=== PATIENT | female | born 1945 | race Caucasian/White ===

== ENCOUNTER 2019-05-18 22:08 | Emergency (ER) | payer MEDICARE, MEDICAID ==
[~2019-05-18] VITALS: Ht 157.5 cm; Wt 113.0 kg
[~2019-05-18 22:08] MED LIST: ATOR40TA PO; ATRIN IH; CEPH-572 PO; CITA40TA22 PO; FURO40TA4 PO; HYDR-4383 PO; OMEP40CA13 PO; WARF2.5T82 PO
[2019-05-18 23:14] LABS: BASOPHILS # (AUTO) 0.1 X10'3 (0-0.2); EOSINOPHILS # (AUTO) 0.4 X10'3 (0-0.9); EOSINOPHILS % (AUTO) 2.9 % (0-6); HEMATOCRIT 37.2 % (35.0-45.0); HEMOGLOBIN 12.1 g/dl (12.0-16.0); LYMPHOCYTES # (AUTO) 3.3 X10'3 (1.1-4.8); LYMPHOCYTES % (AUTO) 24.4 % (21-51); MEAN CORPUSCULAR HEMOGLOBIN 27.3 PG (27.0-31.0); MEAN CORPUSCULAR HGB CONC 32.4 g/dL (33.0-36.5); MEAN CORPUSCULAR VOLUME 84.1 FL (78-98); MEAN PLATELET VOLUME 8.3 FL (7.4-10.4); MONOCYTES % (AUTO) 7.6 % (2-12); NEUTROPHILS # (AUTO) 8.7 X10'3 (1.8-7.7); NEUTROPHILS % (AUTO) 64.1 % (42-75); PLATELET COUNT 422 X10'3 (140-440); RED BLOOD COUNT 4.42 X10'6 (4.20-5.60); RED CELL DISTRIBUTION WIDTH 15.8 % (11.5-14.5); WHITE BLOOD COUNT 13.5 X10'3 (4.5-11.0)
[2019-05-18 23:37] LABS: ALANINE AMINOTRANSFERASE 20 U/L (12-78); ALBUMIN 3.2 G/DL (3.4-5.0); ALBUMIN/GLOBULIN RATIO 0.7 (1.1-1.5); ALKALINE PHOSPHATASE 89 IU/L (46-116); ANION GAP 7 (8-16); ASPARTATE AMINO TRANSFERASE 12 U/L (10-37); BILIRUBIN,TOTAL 0.3 MG/DL (0.1-1.0); BLOOD UREA NITROGEN 12 MG/DL (7-18); BUN/CREATININE RATIO 11.1 (6.6-38.0); CALCIUM 8.2 MG/DL (8.5-10.1); CHLORIDE 106 MMOL/L (99-107); CREATININE 1.08 MG/DL (0.40-0.90); GLUCOSE 95 MG/DL (70-104); LIPASE 176 U/L (73-393); POTASSIUM 3.2 MMOL/L (3.5-5.1); SODIUM 145 MMOL/L (135-145); TOTAL CARBON DIOXIDE 31.9 MMOL/L (24-32); TOTAL PROTEIN 7.8 G/DL (6.4-8.2); eGFR 50 ML/MIN
[2019-05-18 23:54] LABS: CLARITY,URINE CLEAR (Clear); COLOR,URINE YELLOW (Yellow); GLUCOSE, URINE NEGATIVE (Neg); KETONES,URINE NEGATIVE (Neg); LEUKOCYTE ESTERASE ,URINE TRACE (Neg); NITRITES, URINE NEGATIVE (Neg); OCCULT BLOOD,URINE NEGATIVE (Neg); PROTEIN,URINE NEGATIVE (Neg); UROBILINOGEN,URINE 0.2 E.U/dL (0.2-1.0)
[2019-05-18 23:58] LABS: UA COLLECTION TYPE CLN CATCH MIDSTREAM
[2019-05-18 23:59] LABS: BACTERIA,URINE FEW /HPF (Neg); RBC,URINE NONE SEEN /HPF (0-2); SQUAMOUS EPITHELIAL CELL,UR FEW /LPF (FEW)
[2019-05-19] MEDS: diatr meglu/diatrizoate 30ml oral sol.-(3 dose) bottle PO SCH ×3 (02:31→03:58)
[2019-05-19] MEDS ORDERED: iohexol 300mg/ml 100ml inj. ONE (02:58)
[2019-05-19] MEDS ORDERED: magnesium 2GM in 50ml NS 50 ML IV ONE (05:30)
[2019-05-19] MEDS ORDERED: potassium 10mEq/100ml NS w/LIDOcaine (10mg/bag) IV ONE (05:30)
[2019-05-19] MEDS ORDERED: potassium Cl 10 mEq/100mL bag IV ONE (05:40)
--- NOTE | 2019-05-19 06:07 | NUR ---
VERIFIED IV COMPATABILITY ON MICROMEDEX: POTASSIUM CHLORIDE AND MAGNESIUM SULFATE ARE IV COMPATABLE.
[2019-05-19] MEDS ORDERED: ketorolac tromethamine 15mg/ml inj. IV ONE (06:30)
--- NOTE | 2019-05-19 07:05 | NUR ---
PTS IV HAD INFILTRATED AND PT IS DIFFICULT STICK. MD ALVARADO INFORMED AND IS CHANGING PT MEDS TO ORAL PT WITH OUT N/V
[2019-05-19] MEDS ORDERED: POTASSIUM BICARB 20meq eff tab 20 MEQ TABLET.EFF PO ONE (07:10)
[2019-05-19] MEDS ORDERED: HYDROcodone/acetaminophen 5mg/325mg tablet PO ONE (07:10)
[2019-05-19] MEDS ORDERED: magnesium hydroxide 30ml (MOM) UD suspension PO ONE (07:10)
[2019-05-19] MEDS ORDERED: cephalexin 125 MG/5 ML oral susp 100ml btl PO ONE (07:15)
[2019-05-19] MEDS ORDERED: KEF125L PO (07:17)
[2019-05-19] MEDS ORDERED: cephalexin 250 MG/5 ML oral suspension PO ONE (07:45)
[2019-05-19 07:51] VITALS: BP 152/70
== END 2019-05-19 07:54 | disposition home or self-care (01) ==
LOC: ER 22:09
DX: N39.0 Urinary tract infection, site not specified (principal); I71.4 Abdominal aortic aneurysm, without rupture; N28.89 Other specified disorders of kidney and ureter; E87.6 Hypokalemia; M19.90 Unspecified osteoarthritis, unspecified site; G89.29 Other chronic pain; Z90.49 Acquired absence of other specified parts of digestive tract; Z90.710 Acquired absence of both cervix and uterus; Z98.890 Other specified postprocedural states; Z86.73 Personal history of transient ischemic attack (TIA), and cerebral infarction without residual deficits; Z79.01 Long term (current) use of anticoagulants; Z79.899 Other long term (current) drug therapy; Z88.2 Allergy status to sulfonamides; Z88.1 Allergy status to other antibiotic agents; Z88.8 Allergy status to other drugs, medicaments and biological substances
CPT/HCPCS: 36415; 74176; 80053; 81001; 83690; 83735; 85025; 87088; 96365; 96368; 99284; J1885; J3475; J3480; Q9963; Q9967

== ENCOUNTER 2022-08-07 22:18 | Emergency (ER) | payer MEDICARE, MEDICAID ==
[~2022-08-07] VITALS: Ht 167.6 cm; Wt 100.0 kg
[~2022-08-07 22:18] MED LIST changes: +AMLO5TAB16 PO; -ATRIN IH; -CEPH-572 PO; +FERR325T29 PO; -FURO40TA4 PO; -OMEP40CA13 PO; +OMEP40CA21 PO; +POTA-82 PO; +WARF-55 PO; -WARF2.5T82 PO
[2022-08-07 23:29] LABS: BASOPHILS # (AUTO) 0.2 X10'3 (0-0.2); EOSINOPHILS # (AUTO) 0.3 X10'3 (0-0.9); EOSINOPHILS % (AUTO) 2.7 % (0-6); HEMATOCRIT 40.2 % (35.0-45.0); HEMOGLOBIN 13.1 g/dl (12.0-16.0); LYMPHOCYTES # (AUTO) 2.1 X10'3 (1.1-4.8); LYMPHOCYTES % (AUTO) 19.6 % (21-51); MEAN CORPUSCULAR HGB CONC 32.5 g/dL (33.0-36.5); MEAN CORPUSCULAR VOLUME 89.2 FL (78-98); MEAN PLATELET VOLUME 8.9 FL (7.4-10.4); MONOCYTES # (AUTO) 0.6 X10'3 (0-0.9); NEUTROPHILS # (AUTO) 7.5 X10'3 (1.8-7.7); NEUTROPHILS % (AUTO) 69.7 % (42-75); PLATELET COUNT 322 X10'3 (140-440); RED BLOOD COUNT 4.51 X10'6 (4.20-5.60); RED CELL DISTRIBUTION WIDTH 14.5 % (11.5-14.5); WHITE BLOOD COUNT 10.7 X10'3 (4.5-11.0)
[2022-08-07 23:39] LABS: ALANINE AMINOTRANSFERASE 15 U/L (12-78); ALBUMIN 3.2 G/DL (3.4-5.0); ALBUMIN/GLOBULIN RATIO 0.8 (1.1-1.5); ALKALINE PHOSPHATASE 90 IU/L (46-116); ANION GAP 7 (8-16); ASPARTATE AMINO TRANSFERASE 18 U/L (10-37); BILIRUBIN,TOTAL 0.6 MG/DL (0.1-1.0); BLOOD UREA NITROGEN 21 MG/DL (7-18); BUN/CREATININE RATIO 21.4 (6.6-38.0); CALCIUM 8.8 MG/DL (8.5-10.1); CHLORIDE 104 MMOL/L (99-107); CREATININE 0.98 MG/DL (0.40-0.90); GLUCOSE 113 MG/DL (70-104); POTASSIUM 3.3 MMOL/L (3.5-5.1); SODIUM 143 MMOL/L (135-145); TOTAL CARBON DIOXIDE 32.5 MMOL/L (24-32); TOTAL PROTEIN 7.3 G/DL (6.4-8.2); eGFR 55 ML/MIN
[2022-08-07 23:45] LABS: APTT 32 SECONDS (22-32)
[2022-08-08] MEDS ORDERED: pantoprazole 40 MG vial IV ONE (00:10)
[2022-08-08] MEDS ORDERED: diphenhydrAMINE 50 mg/ml inj IV ONE (00:10)
[2022-08-08] MEDS ORDERED: metoclopramide 5 mg/ml inj IV ONE (00:10)
[2022-08-08] MEDS ORDERED: pantoprazole 40MG/NS 100ML BAG 100 ML IV ONE (00:15)
[2022-08-08 02:00] VITALS: BP 120/60
[2022-08-08] MEDS ORDERED: fentaNYL/PF 50MCG/1 ML 2ML syringe IV ONE (02:15)
== END 2022-08-08 03:18 | disposition home or self-care (01) ==
LOC: ER 22:19
DX: K21.9 Gastro-esophageal reflux disease without esophagitis (principal); I11.0 Hypertensive heart disease with heart failure; I50.9 Heart failure, unspecified; G89.29 Other chronic pain; M54.9 Dorsalgia, unspecified; Z90.49 Acquired absence of other specified parts of digestive tract; Z98.890 Other specified postprocedural states
CPT/HCPCS: 36415; 71045; 80053; 83880; 84484; 85025; 85610; 85730; 93005; 96374; 96375; 99285; C9113; J1200; J2765; J3010

== ENCOUNTER 2023-03-27 13:02 | Inpatient (IN) | payer MEDICARE, MEDICAID ==
[~2023-03-27] VITALS: Ht 167.6 cm; Wt 81.8 kg
[~2023-03-27 13:02] MED LIST changes: +POTA-366 PO; -POTA-82 PO
[2023-03-27 14:47] LABS: BASOPHILS % (AUTO) 0.3 % (0-1); EOSINOPHILS # (AUTO) 0.5 X10'3 (0-0.9); EOSINOPHILS % (AUTO) 3.8 % (0-6); HEMATOCRIT 39.3 % (35.0-45.0); HEMOGLOBIN 12.7 g/dl (12.0-16.0); LYMPHOCYTES # (AUTO) 3.1 X10'3 (1.1-4.8); LYMPHOCYTES % (AUTO) 23.6 % (21-51); MEAN CORPUSCULAR HGB CONC 32.3 g/dL (33.0-36.5); MEAN CORPUSCULAR VOLUME 89.8 FL (78-98); MEAN PLATELET VOLUME 9.5 FL (7.4-10.4); MONOCYTES # (AUTO) 1.2 X10'3 (0-0.9); MONOCYTES % (AUTO) 9.1 % (2-12); NEUTROPHILS # (AUTO) 8.4 X10'3 (1.8-7.7); NEUTROPHILS % (AUTO) 63.2 % (42-75); PLATELET COUNT 340 X10'3 (140-440); RED BLOOD COUNT 4.38 X10'6 (4.20-5.60); RED CELL DISTRIBUTION WIDTH 14.9 % (11.5-14.5); WHITE BLOOD COUNT 13.3 X10'3 (4.5-11.0)
[2023-03-27 15:14] LABS: ALANINE AMINOTRANSFERASE 6 U/L (12-78); ALBUMIN 3.2 G/DL (3.4-5.0); ALBUMIN/GLOBULIN RATIO 0.7 (1.1-1.5); ALKALINE PHOSPHATASE 77 IU/L (46-116); ANION GAP 6 (8-16); ASPARTATE AMINO TRANSFERASE 12 U/L (10-37); BILIRUBIN,TOTAL 0.2 MG/DL (0.1-1.0); BLOOD UREA NITROGEN 12 MG/DL (7-18); BUN/CREATININE RATIO 10.8 (10.0-20.0); CALCIUM 8.6 MG/DL (8.5-10.1); CHLORIDE 103 MMOL/L (99-107); CREATININE 1.11 MG/DL (0.40-0.90); GLUCOSE 93 MG/DL (70-104); PRO BRAIN NATRIURETIC PEPTIDE 930 PG/ML (0-450); SODIUM 140 MMOL/L (135-145); TOTAL CARBON DIOXIDE 31.2 MMOL/L (24-32); TOTAL PROTEIN 7.5 G/DL (6.4-8.2); eCRCL 39 ML/MIN; eGFR 48 ML/MIN
[2023-03-27 15:18] LABS: POTASSIUM 2.3 MMOL/L (3.5-5.1)
[2023-03-27] MEDS ORDERED: potassium Cl 40MEQ/1/2NS 520ml 520 ML IV ONE (16:00)
[2023-03-27] MEDS ORDERED: potassium Cl 20 mEq SR tablet PO ONE (16:00)
[2023-03-27] MEDS ORDERED: magnesium 2GM in 50ml NS 50 ML IV ONE (16:00)
[2023-03-27] MEDS ORDERED: mag hydrox/Alum hydrox/simeth 30ml oral suspension PO PRN (16:35)
[2023-03-27] MEDS ORDERED: magnesium 2GM in 50ml NS 50 ML IV PRN (16:35)
[2023-03-27] MEDS ORDERED: magnesium 4gm in 100ml NS 100 ML IV PRN (16:35)
[2023-03-27] MEDS ORDERED: acetaminophen 325mg tablet PO PRN ×2 (16:35)
[2023-03-27] MEDS ORDERED: ondansetron/PF 4mg/2ml inj IV PRN (16:35)
[2023-03-27] MEDS ORDERED: magnesium Cl slow-release 64mg tablet PO PRN (16:35)
[2023-03-27] MEDS ORDERED: potassium Cl 40MEQ/1/2NS 520ml 520 ML IV PRN (16:35)
[2023-03-27] MEDS: potassium Cl 20mEq in NS 1,000 ML IV SCH (16:35)
[2023-03-27] MEDS ORDERED: potassium Cl 20 mEq SR tablet PO PRN (16:35)
[2023-03-27] MEDS ORDERED: magnesium hydroxide 30ml (MOM) UD suspension PO PRN (16:35)
--- NOTE | 2023-03-27 17:00 | NUR ---
PT ASSISTED TO [facility], 1 ASSIST. PT USES ROLLING WALKER AT HOME.
[2023-03-27 17:05] LABS: MAGNESIUM 1.3 MG/DL (1.5-2.4); PHOSPHORUS 2.6 MG/DL (2.3-4.5)
[2023-03-27] MEDS ORDERED: WARF4TAB69 PO (17:13)
--- NOTE | 2023-03-27 17:34 | NUR ---
PER PHARMACIST, OK TO RUN 20 MEQ K WITH 40 MEQ K Y SITE
[2023-03-27] MEDS: docusate sod 100mg capsule PO SCH (20:00)
[2023-03-27] MEDS: K and/or MAG REPLACEMENT MC SCH (20:00)
[2023-03-27] MEDS ORDERED: warfarin 4mg tablet PO ONE (21:00)
[2023-03-27 21:01] LABS: INR 1.9 INR; PROTHROMBIN TIME 19.4 SECONDS (9.0-12.0)
[2023-03-28] VITALS (7 sets, daily range): BP systolic 128–184; BP diastolic 55–81; PULSE 61–69; RESP 16–25; TEMP 97.4–99.3; O2SAT 92–96
[2023-03-28] MEDS: potassium Cl 20mEq in NS 1,000 ML IV SCH ×5 (01:48→23:43)
[2023-03-28] MEDS: docusate sod 100mg capsule PO SCH ×2 (08:00→21:43)
[2023-03-28] MEDS: K and/or MAG REPLACEMENT MC SCH ×2 (08:00→20:00)
[2023-03-28 08:51] LABS: BASOPHILS # (AUTO) 0.1 X10'3 (0-0.2); BASOPHILS % (AUTO) 1.1 % (0-1); EOSINOPHILS # (AUTO) 0.5 X10'3 (0-0.9); EOSINOPHILS % (AUTO) 3.8 % (0-6); HEMATOCRIT 38.9 % (35.0-45.0); HEMOGLOBIN 12.4 g/dl (12.0-16.0); LYMPHOCYTES # (AUTO) 3.4 X10'3 (1.1-4.8); LYMPHOCYTES % (AUTO) 24.9 % (21-51); MEAN CORPUSCULAR VOLUME 90.6 FL (78-98); MEAN PLATELET VOLUME 9.4 FL (7.4-10.4); MONOCYTES # (AUTO) 0.9 X10'3 (0-0.9); MONOCYTES % (AUTO) 6.9 % (2-12); NEUTROPHILS # (AUTO) 8.6 X10'3 (1.8-7.7); NEUTROPHILS % (AUTO) 63.3 % (42-75); PLATELET COUNT 317 X10'3 (140-440); RED BLOOD COUNT 4.29 X10'6 (4.20-5.60); RED CELL DISTRIBUTION WIDTH 14.7 % (11.5-14.5); WHITE BLOOD COUNT 13.6 X10'3 (4.5-11.0)
[2023-03-28 09:07] LABS: ALBUMIN 2.8 G/DL (3.4-5.0); ANION GAP 6 (8-16); BLOOD UREA NITROGEN 10 MG/DL (7-18); BUN/CREATININE RATIO 10.1 (10.0-20.0); CALCIUM 8.7 MG/DL (8.5-10.1); CHLORIDE 106 MMOL/L (99-107); CREATININE 0.99 MG/DL (0.40-0.90); GLUCOSE 103 MG/DL (70-104); MAGNESIUM 1.6 MG/DL (1.5-2.4); SODIUM 145 MMOL/L (135-145); TOTAL CARBON DIOXIDE 32.7 MMOL/L (24-32); eCRCL 44 ML/MIN; eGFR 54 ML/MIN
[2023-03-28 09:13] LABS: POTASSIUM 2.7 MMOL/L (3.5-5.1)
--- NOTE | 2023-03-28 09:42 | NUR ---
PAGER ID: [phone] MESSAGE: Pili Fernandes Pt has critical lab value, K - 2.7 up from 2.3. Sergio [id number]
[2023-03-28] MEDS: pantoprazole 40mg Tablet.DR PO SCH (09:54)
[2023-03-28] MEDS: potassium Cl 20 mEq SR tablet PO PRN ×2 (09:54→23:43)
[2023-03-28] MEDS: citalopram 20mg tablet PO SCH (09:54)
[2023-03-28] MEDS: atorvastatin 20mg tablet PO SCH (09:55)
[2023-03-28] MEDS: ferrous sulfate 325mg tablet PO SCH (09:55)
[2023-03-28] MEDS: amLODIPine 5mg tablet PO SCH (09:55)
--- NOTE | 2023-03-28 12:23 | NUR ---
PAGER ID: [phone] MESSAGE: Pili Valentino9, Pt has a BP of 184/81(115). Did you want a HTN med started for her? Sergio [id number]
[2023-03-28 13:01] LABS: INR 1.9 INR; PROTHROMBIN TIME 19.3 SECONDS (9.0-12.0)
--- NOTE | 2023-03-28 18:39 | NUR ---
Problems reprioritized. Patient report given, questions answered & plan of care reviewed with Lizette VALDEZ.
[2023-03-28] MEDS ORDERED: warfarin 4mg tablet PO ONE (21:00)
[2023-03-29 06:00] VITALS: BP 152/81; PULSE 56; RESP 22; TEMP 98.2; O2SAT 96
--- NOTE | 2023-03-29 06:15 | NUR ---
Problems reprioritized. Patient report given, questions answered & plan of care reviewed with COURTNEY WANG.
--- NOTE | 2023-03-29 06:46 | NUR ---
Patient in room PCU 3019. I have received report from COURTNEY CUEVAS and had the opportunity to ask questions and assume patient care.
[2023-03-29 07:44] LABS: BASOPHILS # (AUTO) 0.2 X10'3 (0-0.2); BASOPHILS % (AUTO) 1.2 % (0-1); EOSINOPHILS # (AUTO) 0.5 X10'3 (0-0.9); EOSINOPHILS % (AUTO) 3.7 % (0-6); HEMATOCRIT 36.4 % (35.0-45.0); HEMOGLOBIN 11.9 g/dl (12.0-16.0); LYMPHOCYTES # (AUTO) 3.4 X10'3 (1.1-4.8); LYMPHOCYTES % (AUTO) 26.8 % (21-51); MEAN CORPUSCULAR HEMOGLOBIN 29.3 PG (27.0-31.0); MEAN CORPUSCULAR HGB CONC 32.8 g/dL (33.0-36.5); MEAN CORPUSCULAR VOLUME 89.4 FL (78-98); MEAN PLATELET VOLUME 9.3 FL (7.4-10.4); MONOCYTES % (AUTO) 7.7 % (2-12); NEUTROPHILS # (AUTO) 7.6 X10'3 (1.8-7.7); NEUTROPHILS % (AUTO) 60.6 % (42-75); PLATELET COUNT 304 X10'3 (140-440); RED BLOOD COUNT 4.07 X10'6 (4.20-5.60); WHITE BLOOD COUNT 12.6 X10'3 (4.5-11.0)
[2023-03-29 07:51] LABS: ALBUMIN 2.6 G/DL (3.4-5.0); ANION GAP 6 (8-16); BLOOD UREA NITROGEN 11 MG/DL (7-18); BUN/CREATININE RATIO 13.4 (10.0-20.0); CALCIUM 8.6 MG/DL (8.5-10.1); CHLORIDE 107 MMOL/L (99-107); CREATININE 0.82 MG/DL (0.40-0.90); GLUCOSE 103 MG/DL (70-104); MAGNESIUM 1.3 MG/DL (1.5-2.4); POTASSIUM 3.4 MMOL/L (3.5-5.1); SODIUM 142 MMOL/L (135-145); TOTAL CARBON DIOXIDE 29.2 MMOL/L (24-32); eCRCL 53 ML/MIN; eGFR 67 ML/MIN
[2023-03-29 07:52] LABS: INR 1.8 INR; PROTHROMBIN TIME 18.4 SECONDS (9.0-12.0)
[2023-03-29] MEDS: K and/or MAG REPLACEMENT MC SCH (08:00)
--- NOTE | 2023-03-29 08:18 | NUR ---
Notified by telemonitor tech patient HR was in the 40's. Patient was sleeping. When awaken patient denies any symptoms and HR in the 70's.
[2023-03-29] MEDS: ferrous sulfate 325mg tablet PO SCH (08:20)
[2023-03-29] MEDS: pantoprazole 40mg Tablet.DR PO SCH (08:21)
[2023-03-29] MEDS: atorvastatin 20mg tablet PO SCH (08:21)
[2023-03-29] MEDS: citalopram 20mg tablet PO SCH (08:21)
[2023-03-29] MEDS: docusate sod 100mg capsule PO SCH (08:21)
[2023-03-29] MEDS: amLODIPine 5mg tablet PO SCH (08:23)
[2023-03-29 08:30] VITALS: RESP 22; O2SAT 96
[2023-03-29 08:44] VITALS: PULSE 61
--- NOTE | 2023-03-29 10:44 | NUR ---
PAGER ID: [phone] MESSAGE: [id number] R- pt K 3.4 and MG 1.3. KDUR 20MEQ and Slow Mag 128mg given this morning at 0821. Ok to DC or hold?- Jovita [id number]
--- NOTE | 2023-03-29 10:45 | NUR ---
PAGER ID: [phone] MESSAGE: [id number]-Audrey GARCIA- also pt HR dropped to the 40's this AM.- Jovita [phone]
[2023-03-29 11:12] VITALS: BP 136/83; PULSE 55; RESP 18; TEMP 97.7; O2SAT 94
--- NOTE | 2023-03-29 11:12 | NUR ---
Return call from Dr. Heard stating patient ok to dc and no new orders.
--- NOTE | 2023-03-29 11:21 | NUR ---
Patient aware she is being dc'd and okay'd for brother Boyd to be called for cotton picking machine operator. Boyd instructed to bring patient's portable home o2 tank for transfer home.
--- NOTE | 2023-03-29 13:53 | NUR ---
Patient alert and oriented with patient's brother Boyd at bedside. Discussed with patient and Boyd discharge instructions and continuing home medications. Patient and Boyd verbalized understanding of teaching and stated no questions.
--- NOTE | 2023-03-29 13:56 | NUR ---
Patient dc'd with all personal belongings along with her portable home o2 and home FWW escorted by MARLENE Garcia. Patient was alert and oriented with no complaints and no s/s of apparent acute distress.
[2023-03-29] MEDS ORDERED: warfarin 5mg tablet PO ONE (21:00)
== END 2023-03-29 14:01 | disposition home or self-care (01) | DRG 640 ==
LOC: ER 13:03 → ED HOLD 16:36 → PCU 3S 03-28 07:35
PROVIDERS: ADMIT Internal Medicine; ATTEND Internal Medicine
DX: E87.6 Hypokalemia (principal); G93.41 Metabolic encephalopathy; I69.320 Aphasia following cerebral infarction; E78.5 Hyperlipidemia, unspecified; I48.0 Paroxysmal atrial fibrillation; I50.9 Heart failure, unspecified; K21.9 Gastro-esophageal reflux disease without esophagitis; F32.A Depression, unspecified; M19.90 Unspecified osteoarthritis, unspecified site; G89.29 Other chronic pain; I11.0 Hypertensive heart disease with heart failure; Z79.01 Long term (current) use of anticoagulants; Z80.0 Family history of malignant neoplasm of digestive organs; Z90.710 Acquired absence of both cervix and uterus; Z90.49 Acquired absence of other specified parts of digestive tract; Z88.1 Allergy status to other antibiotic agents; Z88.8 Allergy status to other drugs, medicaments and biological substances; Z88.2 Allergy status to sulfonamides; Z88.5 Allergy status to narcotic agent; Z79.899 Other long term (current) drug therapy
CPT/HCPCS: 36415; 80048; 80053; 83735; 83880; 84100; 84132; 85025; 85610; 87081; 97161; 97530; 99285; A4615; G0378; J3475; J3480; J7030

== ENCOUNTER 2025-02-22 19:23 | Emergency (ER) | payer MEDICARE, MEDICAID ==
[~2025-02-22] VITALS: Ht 167.6 cm; Wt 102.0 kg
[~2025-02-22 19:23] MED LIST changes: -WARF-55 PO; +WARF4TAB69 PO
--- NOTE | 2025-02-22 19:59 | Physician Documentation ---
History of Present Illness ~ Chief Complaint: Rectal Pain Stated Complaint: HEMORRHOIDS Time Seen by MD: 19:42 Primary Medical Doctor: Yen Brower MD Source: family, EMS Mode of Arrival: EMS Exam Limitations: other (Advancing dementia) HPI 79-year-old female brought in by EMS lives at home with her at baseline is alert and oriented x2 with advancing dementia. called EMS due to history of hemorrhoids with blood in her brief for the past 2 days. Patient is also on warfarin Medication Reconciliation Allergies: Coded Allergies: Antihistamines - Alkylamine (Verified Allergy, Unknown, 06/12/17) Erythromycin Lactobionate (Verified Allergy, Unknown, 06/12/17) Sulfa (Sulfonamide Antibiotics) (Verified Allergy, Unknown, 06/12/17) citalopram (Verified Allergy, Unknown, 06/12/17) lisinopril (Verified Allergy, Unknown, DIFFICULTY BREATHING, 06/12/17) morphine (Verified Allergy, Unknown, 06/12/17) nitrofurantoin (Verified Allergy, Unknown, 06/12/17) piperacillin (Verified Allergy, Unknown, 06/12/17) tazobactam (Verified Allergy, Unknown, 06/12/17) aspartame (Verified Adverse Reaction, Intermediate, N/V, 06/12/17) Uncoded Allergies: TAPE (Allergy, Unknown, 09/25/13) Scheduled Amlodipine Besylate (Amlodipine Besylate), 1 TAB PO DAILY, (Reported) Atorvastatin Calcium* (Lipitor*), 1 TAB PO DAILY, (Reported) Citalopram Hydrobromide (Celexa), 1 TABLET PO DAILY, (Reported) Ferrous Sulfate (Ferrous Sulfate), 1 TAB PO DAILY, (Reported) Hydrocodone/Acetaminophen ([place] 5-325 Tablet), 1 TAB PO TID PRN, (Reported) Omeprazole (Prilosec), 1 CAP PO BID, (Reported) Potassium Chloride (Potassium Chloride), 1 TAB PO DAILY, (Reported) Warfarin Sodium (Warfarin Sodium), 1 TAB PO QDC, (Reported) Past Medical History Past Medical History: CVA/TIA/Stroke, Congestive Heart Failure, Hypertension, Bowel Obstruction, GERD, Hernia, Arthritis, Chronic Pain Past Surgical History: abdominal surgery, cholecystectomy, colectomy, hysterectomy, orthopedic surgeries Other Past Surgical History: kidney removed, hernia repair, colostomy Patient History: FH: stomach cancer Unknown Alcohol Use: None Drug Use: none Lives with: Family Lives In: Home Occupation: retired Review of Systems All Other Systems at this time: Reviewed and Negative Gastrointestinal: Reports: see HPI, rectal pain Physical Exam Physical Exam General: Dementia baseline no apparent distress. Elderly female HEENT: PERRL, EOMI, no injection, moist mucous membranes. Neck: Full range of motion. Respiratory: Lungs clear, no respiratory distress. Chest: No accessory muscle use. Cardiovascular: Regular rate and rhythm, no murmurs. Extremities: Normal range of motion, no deformity. Rectal: Large thrombus external hemorrhoid a proximally 2 cm x 3-1/2 cm at 6:00 a.m.. Neurologic: Alert and oriented x2 baseline with dementia Psychiatric: Normal mood and affect. Skin: Normal color, warm and dry. No edema, no ecchymosis. Progress Results/Orders Results/Orders Orders - LUCILA PAPPAS NP Hydrocodone/Apap 10/325 ([place] 10/325mg (02/22/25 20:30) Vital Signs 02/22/25 19:59 Temp 97.8 Pulse 67 Resp 14 B/P (MAP) 178/87 Pulse Ox 95 O2 Flow Rate 3.0 Medical Decision Making Findings Thrombosed hemorrhoid patient is on warfarin monitored patient for excessive bleeding for 30 minutes prior to discharge. Patient received a pain medication she would normally receive at home. Patient was ultimately discharged via ambulance to go home and rest patient at baseline with dementia. Caregiver and brother at bedside Diff Dx Rectal:Considerations: Include: Fissure, Fistula, Perirectal abscess, Rectal prolapse, Thrombosed hemorrhoid Departure Time of Disposition: 20:34 Disposition: 01 HOME / SELF CARE / HOMELESS Impression: Primary Impression: Thrombosed hemorrhoids Condition: Stable Discharge Instructions: Hemorrhoids, [id number] Additional Instructions: There might be some scant blood from the hemorrhoid that had a blood clot expressed from it. Antibiotics should be taken as prescribed and follow up with primary care Referrals: NO PRIMARY CARE PROVIDER (PCP) Prescriptions Doxycycline Hyclate (Doxycycline Hyclate) 100 Mg Capsule 1 CAP PO Q12H for 7 Days, #14 CAP Prov: LUCILA PAPPAS NP 02/22/25 Education Educated: Family Educated regarding: diagnosis, treatment, need for follow up Signature Scribe Signature: No scribe Attestation: The note accurately reflects work and decisions made by me.Lucila PARRA 02/22/25 19:59 Procedures I & D Procedure : Anesthesia: none Blade Size: 11 Prep/Supplies: betadine prep Incision: blood drained Tolerated Procedure Well?: yes, no complications Procedure Note Thrombus hemorrhoid nicking with 11 blade expressed 3 large clots patient tolerated well LUCILA PAPPAS NP Feb 22, 2025 19:59
[2025-02-22] MEDS ORDERED: DOXY-1 PO (20:36)
[2025-02-22] MEDS: HYDROcodone/acetaminophen 10/325mg tab PO ONE (20:40)
[2025-02-22 21:32] VITALS: BP 172/80; PULSE 85; RESP 18; TEMP 98.6; O2SAT 97
== END 2025-02-22 21:33 | disposition home or self-care (01) ==
LOC: ER 19:24
DX: K64.5 Perianal venous thrombosis (principal); G89.29 Other chronic pain; I11.0 Hypertensive heart disease with heart failure; I50.9 Heart failure, unspecified; K21.9 Gastro-esophageal reflux disease without esophagitis; M19.90 Unspecified osteoarthritis, unspecified site; Z86.73 Personal history of transient ischemic attack (TIA), and cerebral infarction without residual deficits; Z87.19 Personal history of other diseases of the digestive system; Z88.1 Allergy status to other antibiotic agents; Z88.2 Allergy status to sulfonamides; Z88.5 Allergy status to narcotic agent; Z88.8 Allergy status to other drugs, medicaments and biological substances; Z90.49 Acquired absence of other specified parts of digestive tract; Z90.710 Acquired absence of both cervix and uterus; Z79.01 Long term (current) use of anticoagulants; Z98.890 Other specified postprocedural states; Z93.3 Colostomy status
CPT/HCPCS: 99283; A6402; A6449

== ENCOUNTER → 2025-03-26 | Emergency (ER) | payer MEDICARE, MEDICAID ==
[~2025-03-26] VITALS: Ht 170.2 cm; Wt 86.4 kg
[2025-03-26 20:04] VITALS: BP 172/81; PULSE 62; RESP 16; TEMP 97.6; O2SAT 93
== END | disposition left against medical advice (07) ==
LOC: ER 19:49
DX: M25.562 Pain in left knee (principal); M25.561 Pain in right knee; Z53.21 Procedure and treatment not carried out due to patient leaving prior to being seen by health care provider; Z88.1 Allergy status to other antibiotic agents; Z88.5 Allergy status to narcotic agent; Z88.2 Allergy status to sulfonamides; Z88.8 Allergy status to other drugs, medicaments and biological substances; Z88.9 Allergy status to unspecified drugs, medicaments and biological substances
CPT/HCPCS: 99281